=== PATIENT | female | born 1950 | race Caucasian/White ===

== ENCOUNTER 2018-08-30 23:02 | Emergency (ER) | payer MEDICARE, OTHER ==
[~2018-08-30] VITALS: Ht 154.9 cm; Wt 47.6 kg
== END 2018-08-30 23:44 | disposition home or self-care (01) ==
LOC: FSED 23:02
DX: R50.9 Fever, unspecified (principal); R05 Cough; H10.021 Other mucopurulent conjunctivitis, right eye; J02.9 Acute pharyngitis, unspecified
CPT/HCPCS: 87400; 99283

== ENCOUNTER 2020-09-25 11:15 | Emergency (ER) | payer MEDICARE ==
[~2020-09-25] VITALS: Ht 154.9 cm; Wt 47.6 kg
== END 2020-09-25 11:30 | disposition home or self-care (01) ==
LOC: ER 11:30
DX: I10 Essential (primary) hypertension (principal); R42 Dizziness and giddiness; E78.5 Hyperlipidemia, unspecified
CPT/HCPCS: 99282